=== PATIENT | female | born 1995 | race Caucasian/White ===

== ENCOUNTER → 2017-04-29 | Outpatient (CLI) | payer BC ==
--- NOTE | 2017-05-20 13:00 | HM ---
HOLTER MONITOR REPORT 24 HOUR DCG REPORT: There was no diary provided with this recording. Predominant rhythm appears to be sinus with a heart rate ranging from 43 to 123 beats per minute with average heart rate of 67 beats per minute. Rare isolated PACs and PVCs were noted. There was no significant arrhythmia on this recording. There was no significant bradyarrhythmia. FINAL IMPRESSION: Predominant rate is sinus with average heart rate of 67 beats per minute with sinus arrhythmia and rare premature atrial contractions were noted. Patient did not provide any diary. MMODL / IJN: [id number] /
== END | disposition home or self-care (01) ==
LOC: RADECHMAIN 12:55
PROVIDERS: ATTEND Family Medicine
DX: R00.2 Palpitations (principal)
CPT/HCPCS: 93225; 93226